=== PATIENT | male | born 1985 | race Caucasian/White ===

== ENCOUNTER 2019-08-27 12:59 | Emergency (ER) | payer OTHER ==
[~2019-08-27] VITALS: Ht 170.2 cm; Wt 60.4 kg
[2019-08-27] MEDS ORDERED: BUPR1SUB5 SL (13:26)
--- NOTE | 2019-08-27 13:45 | REP ---
Chest x-ray: Two views. History: Fever and cough. Findings: There is an infiltrate in the right middle lobe consistent with pneumonia. Remaining lung perez are clear. Pleural angles are sharp. Heart size is normal. Pulmonary vasculature is not increased. No bony abnormality is seen. Impression: Right middle lobe pneumonia. Electronically Signed by Tim Chew MD 08/27/2019 01:37 P
[2019-08-27] MEDS ORDERED: DOXY100C37 PO (14:22)
[2019-08-27 14:34] VITALS: BP 122/72
== END 2019-08-27 14:35 | disposition home or self-care (01) ==
LOC: M ED 12:59
DX: J18.1 Lobar pneumonia, unspecified organism (principal); F17.200 Nicotine dependence, unspecified, uncomplicated; Z88.1 Allergy status to other antibiotic agents; Z79.899 Other long term (current) drug therapy